=== PATIENT | female | born 1965 | race Caucasian/White ===

== ENCOUNTER 2018-03-08 23:17 | Inpatient (IN) | payer MEDICARE, OTHER ==
[~2018-03-08] VITALS: Ht 157.5 cm; Wt 90.7 kg
[2018-03-09 00:05] VITALS: BP 135/96
--- NOTE | 2018-03-09 00:05 | NUR ---
GPS ADMISSION NOTE, RECEIVED PATIENT FROM [facility] IN [facility]. PATIENT ARRIVED ON THIS UNIT AT 0005 VIA STRETCHER WITH 2 EMT ESCORTS. PATIENT ADMITTED VOLUNTARILY. PATIENT CAME FOR MEDICATION ADJUSTMENT AND HAS HAD DIFFICULTY SLEEPING. UPON FACE TO FACE ASSESSMENT PATIENT IS CURRENTLY LYING IN BED AWAKE, HAS NO S/S OR COMPLAINTS OF PAIN. PATIENT IS DISPLAYING NO S/S OF APPARENT DISTRESS. PATIENT BREATHING IS UNLABORED WITH EQUAL RISE AND FALL OF THE CHEST. PATIENT IS ALERT AND ORIENTATED X 3 ON ROOM AIR. PATIENT COMPLAINS OF INSOMNIA AT THIS TIME. PATIENT IS CALM AND COOPERATIVE, LAUGHING ABLE TO MAKE ALL NEEDS KNOWN. PATIENT IS UNDER THE PSYCHIATRIC CARE OF DR. BENITO AND THE MEDICAL CARE OF DR. LAKESHA QUINTANA. PATIENT BELONGINGS WERE INVENTORIED AND CHECKED FOR CONTRABAND. ALL CONTRABAND REMOVED AND STORED IN PATIENT HALLWAY LOCKER. PATIENT ADVANCED DIRECTIVES PREFERENCE, IMMUNIZATIONS QUESTIONER, NECESSARY PAPERWORK. SKIN ASSESSMENT WAS DONE. PATIENT ORIENTATED TO ROOM, FLOOR, AND STAFF WITH ALL QUESTIONS ANSWERED. PATIENT EDUCATED ON THE USE OF THE CALL OCHOA. PATIENT BED SIDE RAILS ARE UP X 2 FOR SAFETY. PATIENT BED IS LOCKED, LOW AND I WILL CONTINUE TO MONITOR THIS PATIENT Q 15 MIN WITH THE HELP OF STAFF TO MAINTAIN SAFETY.
[2018-03-09] MEDS ORDERED: MAGNESIUM HYDROXIDE 30 ML UDC PO PRN (00:30)
[2018-03-09] MEDS ORDERED: LORAZEPAM 0.5 MG TABLET PO PRN (00:30)
[2018-03-09] MEDS ORDERED: MAG HYDROX/AL HYDROX/SIMETH 30 ML UDC PO PRN (00:30)
[2018-03-09] MEDS ORDERED: ESCI10TA PO (01:19)
[2018-03-09] MEDS ORDERED: CLON1TAB5 PO (01:19)
[2018-03-09] MEDS ORDERED: HYDR-3026 PO (01:19)
[2018-03-09] MEDS ORDERED: OMEP20CA10 PO (01:19)
[2018-03-09] MEDS ORDERED: ARIP5TAB20 PO (01:19)
[2018-03-09] MEDS ORDERED: GABA-534 PO ×2 (01:19)
[2018-03-09] MEDS: ZOLPIDEM TARTRATE 5 MG TABLET PO PRN ×2 (01:32→22:10)
--- NOTE | 2018-03-09 01:32 | NUR ---
GPS RN NOTE, PATIENT HAS A COMPLAINT OF NOT BEING ABLE TO AND IS REQUESTING AMBIEN AT THIS TIME. PATIENT VITAL SIGNS ARE STABLE. GAVE AMBIEN 5MG PO HS ORDERED. WILL REASSESS FOR INSOMNIA AND I WILL CONTINUE TO MONITOR THIS PATIENT.
--- NOTE | 2018-03-09 05:30 | NUR ---
SPOKE ON PHONE WITH LAKESHA QUINTANA NP AT 0530 WHO SAID HE WILL RECONCILE MEDS.
--- NOTE | 2018-03-09 06:32 | NUR ---
GPS RN NOTE: WILL ENDORSE WITH NEXT SHIFT RN TO FOLLOW UP WITH ATIF BUENROSTRO ABOUT RECONCILIATION OF MEDS
[2018-03-09 08:00] VITALS: BP 158/99
[2018-03-09] MEDS: ESCITALOPRAM OXALATE (10 MG) 10 MG TABLET PO SCH (10:38)
[2018-03-09] MEDS: QUETIAPINE FUMARATE 25 MG TABLET PO SCH ×3 (10:38→22:10)
[2018-03-09] MEDS: clonazePAM 0.5 MG TABLET PO SCH ×4 (10:38→22:10)
--- NOTE | 2018-03-09 13:12 | NUR ---
DUE MED OF KLONOPIN NOT GIVEN AT THIS TIME BECAUSE THE FIRST DOSE OF THIS MED GIVEN AT 1038.
--- NOTE | 2018-03-09 15:05 | NUR ---
SW spoke to pt's mother, Sarah Vargas , regarding additional information and about a discharge plan.
--- NOTE | 2018-03-09 15:05 | NUR ---
Initial Discharge Plan: Pt came from [facility] [[address] [place] [address], ]. SW will work with the patient, the family and the MD regarding an appropriate discharge. SW will form a safe and proper discharge.
[2018-03-09 16:28] VITALS: BP 122/79
[2018-03-09 20:29] VITALS: BP 127/75
[2018-03-09] MEDS: GABAPENTIN 300 MG CAPSULE PO SCH (22:10)
[2018-03-10 07:15] LABS: BASOPHILS # (AUTO) 0.1 /CMM (0.0-0.2); BASOPHILS % (AUTO) 0.5 % (0.0-2.0); EOSINOPHILS % (AUTO) 4.3 % (0.0-6.0); HEMATOCRIT 37 % (33-45); HEMOGLOBIN 12.4 g/dL (11.5-14.8); LYMPHOCYTES # (AUTO) 2.5 /CMM (0.8-4.8); LYMPHOCYTES % (AUTO) 25.6 % (20.0-44.0); MEAN CORPUSCULAR HGB CONC 34 g/dl (31.0-36.0); MEAN CORPUSCULAR VOLUME 85 fL (82-100); MONOCYTES # (AUTO) 0.8 /CMM (0.1-1.30); MONOCYTES % (AUTO) 8.1 % (2.0-12.0); NEUTROPHILS # (AUTO) 5.9 /CMM (1.8-8.9); NEUTROPHILS % (AUTO) 61.5 % (43.0-81.0); PLATELET COUNT (AUTO) 312 /CMM (150-450); RDW COEFFICIENT OF VARIATION 14.6 (11.5-15.0); WHITE BLOOD COUNT (AUTO) 9.6 K/uL (4.3-11.0)
[2018-03-10 07:20] LABS: ALBUMIN 3.3 g/dL (3.4-5.0); BILIRUBIN,TOTAL 0.3 mg/dL (0.2-1.0); CALCIUM, SERUM 8.2 mg/dL (8.5-10.1); CREATININE 0.6 mg/dL (0.6-1.3); TOTAL PROTEIN, SERUM 7.9 g/dL (6.4-8.2)
[2018-03-10 07:26] LABS: CHOLESTEROL 118 mg/dL (<200); HDL CHOLESTEROL 37 mg/dL (40-60); LDL 84 mg/dL (0-99); TRIGLYCERIDES 37 mg/dL (30-150)
[2018-03-10 08:00] VITALS: BP 145/82
[2018-03-10] MEDS: clonazePAM 0.5 MG TABLET PO SCH ×4 (08:19→21:41)
[2018-03-10] MEDS: PANTOPRAZOLE 40 MG TABLET.DR PO SCH (08:20)
[2018-03-10] MEDS: QUETIAPINE FUMARATE 25 MG TABLET PO SCH ×3 (08:20→21:42)
[2018-03-10] MEDS: GABAPENTIN 300 MG CAPSULE PO SCH ×2 (08:20→21:42)
[2018-03-10] MEDS: ESCITALOPRAM OXALATE (10 MG) 10 MG TABLET PO SCH (08:20)
--- NOTE | 2018-03-10 15:16 | NUR ---
Kalani Sanchez BIT TAPPER notified that pt. has MRSA on the nares and ordered Bactroban ointment Q12 hours x7 days.
[2018-03-10 16:00] VITALS: BP 135/84
[2018-03-10 20:00] VITALS: BP 134/59
[2018-03-10] MEDS: GUAIFENESIN 300 MG/15 ML UDC PO PRN (20:12)
[2018-03-10] MEDS: MUPIROCIN OINT 2% 22 GM TUBE SCH (21:41)
[2018-03-10] MEDS: ZOLPIDEM TARTRATE 5 MG TABLET PO PRN (21:42)
[2018-03-11 08:06] VITALS: BP 129/80
[2018-03-11] MEDS: QUETIAPINE FUMARATE 25 MG TABLET PO SCH ×3 (08:24→20:49)
[2018-03-11] MEDS: ESCITALOPRAM OXALATE (10 MG) 10 MG TABLET PO SCH (08:24)
[2018-03-11] MEDS: GABAPENTIN 300 MG CAPSULE PO SCH ×2 (08:24→20:49)
[2018-03-11] MEDS: PANTOPRAZOLE 40 MG TABLET.DR PO SCH (08:24)
[2018-03-11] MEDS: clonazePAM 0.5 MG TABLET PO SCH ×4 (08:24→20:48)
[2018-03-11] MEDS: MUPIROCIN OINT 2% 22 GM TUBE SCH ×2 (08:27→20:46)
[2018-03-11 15:56] VITALS: BP 127/68
[2018-03-11] MEDS: GUAIFENESIN 300 MG/15 ML UDC PO PRN ×2 (16:24→23:01)
--- NOTE | 2018-03-11 16:24 | NUR ---
[id number]: GAVE ROBITUSSIN 15 ML DUE TO COMPLAINING OF COUGH AND WILL CONTINUE TO MONITOR FOR EFFECTIVENESS OF MEDICATION
[2018-03-11 20:04] VITALS: BP 120/75
[2018-03-11] MEDS: ZOLPIDEM TARTRATE 5 MG TABLET PO PRN (23:03)
[2018-03-12 07:59] VITALS: BP 134/70
[2018-03-12] MEDS: QUETIAPINE FUMARATE 25 MG TABLET PO SCH ×3 (08:52→21:37)
[2018-03-12] MEDS: clonazePAM 0.5 MG TABLET PO SCH ×4 (08:52→21:37)
[2018-03-12] MEDS: PANTOPRAZOLE 40 MG TABLET.DR PO SCH (08:52)
[2018-03-12] MEDS: GABAPENTIN 300 MG CAPSULE PO SCH ×2 (08:52→21:37)
[2018-03-12] MEDS: ESCITALOPRAM OXALATE (10 MG) 10 MG TABLET PO SCH (08:52)
[2018-03-12] MEDS: MUPIROCIN OINT 2% 22 GM TUBE SCH ×2 (08:54→21:38)
[2018-03-12 15:59] VITALS: BP 133/74
[2018-03-12] MEDS: GUAIFENESIN 300 MG/15 ML UDC PO PRN (17:50)
--- NOTE | 2018-03-12 19:30 | NUR ---
GPS RN NOTE, RECEIVED PATIENT AWAKE AND IN BED, NO S/S OR COMPLAINTS OF PAIN AT THIS TIME. PATIENT DISPLAYING NO S/S OF APPARENT DISTRESS AT THIS TIME. PATIENT BREATHING IS UNLABORED WITH EQUAL RISE AND FALL OF THE CHEST. PATIENT ALERT AND ORIENTED X 3 WITH A SPO2 95%. PATIENT IS ON ISOLATION PRECAUTIONS FOR MRSA. PATIENT IS MED COMPLIANT, DISORGANIZED, HYPERVERBAL, COOPERATIVE, LAUGHS AT SELF, NEEDS REORIENTATION. PATIENT DENIES SUICIDE IDEATIONS AND HOMICIDAL IDEATIONS AT THIS TIME. PATIENT ASSISTED WITH TURNING AND REPOSITIONING Q2HR AND PRN FOR COMFORT AND CIRCULATION. PATIENT HAS NO NEEDS AT THIS TIME. PATIENT EDUCATED ON THE USE OF THE CALL OCHOA. PATIENT BED SIDE RAILS UP X2 FOR SAFETY, BED IS LOCKED AND LOW WILL CONTINUE TO MONITOR AND MAINTAIN AND MAINTAIN SAFETY.
[2018-03-12 19:56] VITALS: BP 133/91
[2018-03-13] MEDS: GUAIFENESIN 300 MG/15 ML UDC PO PRN ×2 (04:27→21:47)
--- NOTE | 2018-03-13 04:27 | NUR ---
GPS RN NOTE, PATIENT HAS A COMPLAINT OF COUGH AND IS REQUESTING ROBITUSSIN AT THIS TIME. PATIENT VITAL SIGNS ARE STABLE. GAVE ROBITUSSIN 300MG PO Q6HR PRN ORDERED. WILL REASSESS COUGH AND I WILL CONTINUE TO MONITOR THIS PATIENT.
[2018-03-13 08:00] VITALS: BP 125/69
[2018-03-13] MEDS: clonazePAM 0.5 MG TABLET PO SCH ×4 (08:59→21:28)
[2018-03-13] MEDS: GABAPENTIN 300 MG CAPSULE PO SCH ×2 (08:59→21:28)
[2018-03-13] MEDS: ESCITALOPRAM OXALATE (10 MG) 10 MG TABLET PO SCH (08:59)
[2018-03-13] MEDS: QUETIAPINE FUMARATE 25 MG TABLET PO SCH ×4 (08:59→21:28)
[2018-03-13] MEDS: PANTOPRAZOLE 40 MG TABLET.DR PO SCH (08:59)
[2018-03-13] MEDS: MUPIROCIN OINT 2% 22 GM TUBE SCH ×2 (09:00→21:30)
[2018-03-13 16:00] VITALS: BP 150/83
[2018-03-13 17:33] LABS: APPEARANCE,URINE CLEAR (CLEAR); BILIRUBIN,URINE NEGATIVE (NEGATIVE); BLOOD, URINE NEGATIVE Ery/uL (NEGATIVE); COLOR,URINE YELLOW (YELLOW); KETONES,URINE NEGATIVE (NEGATIVE); LEUKOCYTE ESTERASE ,URINE NEGATIVE (NEGATIVE); NITRITE, URINE NEGATIVE (NEGATIVE); PH,URINE 5.5 (5.0-8.0); PROTEIN,URINE NEGATIVE (NEGATIVE); UGLUCOSE NEGATIVE (NEGATIVE); UROBILINOGEN,URINE 0.2 EU/dL (0.2)
[2018-03-13 20:18] VITALS: BP 128/72
[2018-03-14] MEDS: GUAIFENESIN 300 MG/15 ML UDC PO PRN ×2 (05:06→20:23)
[2018-03-14 08:00] VITALS: BP 140/78
[2018-03-14] MEDS: MUPIROCIN OINT 2% 22 GM TUBE SCH ×2 (09:00→20:34)
[2018-03-14] MEDS: clonazePAM 0.5 MG TABLET PO SCH ×2 (09:00→20:30)
[2018-03-14] MEDS: ESCITALOPRAM OXALATE (10 MG) 10 MG TABLET PO SCH (09:00)
[2018-03-14] MEDS: QUETIAPINE FUMARATE 25 MG TABLET PO SCH ×4 (09:00→21:05)
[2018-03-14] MEDS: PANTOPRAZOLE 40 MG TABLET.DR PO SCH (09:00)
[2018-03-14] MEDS: GABAPENTIN 300 MG CAPSULE PO SCH ×3 (09:12→21:04)
--- NOTE | 2018-03-14 13:58 | NUR ---
Pt spoke to Yisel Watts ([phone]) who is from the [facility] that the pt came from and updated her on the status.
[2018-03-14 15:58] VITALS: BP 127/80
--- NOTE | 2018-03-14 19:40 | NUR ---
RN NOTES GPS RN NOTE: RECEIVED PATIENT AWAKE IN DAY ROOM WATCHING TV. NO S/S OR COMPLAINTS OF PAIN AT THIS TIME. PATIENT DISPLAYING NO S/S OF APPARENT DISTRESS AT THIS TIME. PATIENT IS ALERT AND ORIENTED X 3. PATIENT DENIES SUICIDE IDEATIONS AND HOMICIDAL IDEATIONS AT THIS TIME. WILL CONTINUE TO MONITOR AND MAINTAIN AND MAINTAIN SAFETY.
[2018-03-14 20:30] VITALS: BP 137/81
[2018-03-15] MEDS: ZOLPIDEM TARTRATE 5 MG TABLET PO PRN (03:35)
--- NOTE | 2018-03-15 03:44 | NUR ---
GPS RN NOTE: PATIENT WOKE UP AT 0300 AND CAME TO NURSE STATION STATING COULD NOT GO BACK TO SLEEP. SHE INITIALLY REFUSED PRN FOR SLEEP BUT ACCEPTED PAPER AND PENCIL TO WRITE. ALSO VERBALIZED UPSET ABOUT A BASKETBALL GAME SHE WATCHED EARLIER TONIGHT. AT 0345, SHE WAS STILL AWAKE AND REQUESTED AND ACCEPTED PRN AMBIEN FOR SLEEP. NO OTHER SIGNS OF DISTRESS. WILL CONTINUE TO MONITOR.
[2018-03-15 08:00] VITALS: BP 129/70
[2018-03-15] MEDS: ESCITALOPRAM OXALATE (10 MG) 10 MG TABLET PO SCH (08:51)
[2018-03-15] MEDS: QUETIAPINE FUMARATE 25 MG TABLET PO SCH ×4 (08:51→21:41)
[2018-03-15] MEDS: GABAPENTIN 300 MG CAPSULE PO SCH ×3 (08:51→21:41)
[2018-03-15] MEDS: clonazePAM 0.5 MG TABLET PO SCH ×2 (08:52→21:41)
[2018-03-15] MEDS: PANTOPRAZOLE 40 MG TABLET.DR PO SCH (08:52)
[2018-03-15] MEDS: GUAIFENESIN 300 MG/15 ML UDC PO PRN ×2 (08:52→21:46)
[2018-03-15] MEDS: MUPIROCIN OINT 2% 22 GM TUBE SCH ×2 (08:52→21:40)
--- NOTE | 2018-03-15 14:53 | NUR ---
Pt spoke to Yisel Watts ([phone]) who is the ict development manager from the [facility] and house care that the pt came from and informed her of an updated discharge plan. SW also confirmed that a notice will be given a day before discharge.
[2018-03-15 16:00] VITALS: BP 130/77
--- NOTE | 2018-03-15 19:30 | NUR ---
GPS RN NOTE, RECEIVED PATIENT AWAKE AND IN BED, NO S/S OR COMPLAINTS OF PAIN AT THIS TIME. PATIENT DISPLAYING NO S/S OF APPARENT DISTRESS AT THIS TIME. PATIENT BREATHING IS UNLABORED WITH EQUAL RISE AND FALL OF THE CHEST. PATIENT ALERT AND ORIENTED X 3 WITH A SPO2 96%. PATIENT IS ON ISOLATION PRECAUTIONS FOR MRSA. PATIENT IS MED COMPLIANT, DISORGANIZED, HYPERVERBAL, COOPERATIVE, LAUGHS AT SELF, NEEDS REORIENTATION. PATIENT DENIES SUICIDE IDEATIONS AND HOMICIDAL IDEATIONS AT THIS TIME. PATIENT ASSISTED WITH TURNING AND REPOSITIONING Q2HR AND PRN FOR COMFORT AND CIRCULATION. PATIENT HAS NO NEEDS AT THIS TIME. PATIENT EDUCATED ON THE USE OF THE CALL OCHOA. PATIENT BED SIDE RAILS UP X2 FOR SAFETY, BED IS LOCKED AND LOW WILL CONTINUE TO MONITOR AND MAINTAIN AND MAINTAIN SAFETY.
[2018-03-15 20:35] VITALS: BP 143/83
[2018-03-16] MEDS: GUAIFENESIN 300 MG/15 ML UDC PO PRN ×2 (04:42→18:54)
[2018-03-16 08:00] VITALS: BP 133/81
[2018-03-16] MEDS: GABAPENTIN 300 MG CAPSULE PO SCH ×3 (08:49→21:16)
[2018-03-16] MEDS: QUETIAPINE FUMARATE 25 MG TABLET PO SCH ×3 (08:49→21:17)
[2018-03-16] MEDS: ESCITALOPRAM OXALATE (10 MG) 10 MG TABLET PO SCH (08:49)
[2018-03-16] MEDS: clonazePAM 0.5 MG TABLET PO SCH ×2 (08:50→21:16)
[2018-03-16] MEDS: PANTOPRAZOLE 40 MG TABLET.DR PO SCH (08:55)
[2018-03-16] MEDS: MUPIROCIN OINT 2% 22 GM TUBE SCH ×2 (08:55→21:07)
[2018-03-16 15:57] VITALS: BP 150/85
--- NOTE | 2018-03-16 16:33 | NUR ---
LISA spoke to pt's mother, Sarah Vargas and informed her that the pt will be discharging on Monday. LISA also retrieved the outside psychiatrist's information from her.
--- NOTE | 2018-03-16 20:00 | NUR ---
GPS RN NOTE, RECEIVED PATIENT AWAKE AND IN ROOM, NO S/S OR COMPLAINTS OF PAIN AT THIS TIME. PATIENT DISPLAYING NO S/S OF APPARENT DISTRESS AT THIS TIME. PATIENT BREATHING IS UNLABORED WITH EQUAL RISE AND FALL OF THE CHEST. PATIENT ALERT AND ORIENTED X 3 WITH A SPO2 100%. PATIENT IS ON ISOLATION PRECAUTIONS FOR MRSA NARES. PATIENT IS MED COMPLIANT, DISORGANIZED, HYPERVERBAL FREQUENTLY SEEKING ATTENTION, COOPERATIVE, BUT NEEDS REORIENTATION. PATIENT DENIES SUICIDE IDEATIONS AND HOMICIDAL IDEATIONS AT THIS TIME. PATIENT HAS NO NEEDS AT THIS TIME. PATIENT EDUCATED ON THE USE OF THE CALL OCHOA. PATIENT BED SIDE RAILS UP X2 FOR SAFETY, BED IS LOCKED AND LOW WILL CONTINUE TO MONITOR AND MAINTAIN AND MAINTAIN SAFETY.
[2018-03-16 20:06] VITALS: BP 137/75
[2018-03-17] MEDS: GUAIFENESIN 300 MG/15 ML UDC PO PRN (06:12)
[2018-03-17 08:00] VITALS: BP 135/78
[2018-03-17] MEDS: MUPIROCIN OINT 2% 22 GM TUBE SCH (08:33)
[2018-03-17] MEDS: PANTOPRAZOLE 40 MG TABLET.DR PO SCH (08:34)
[2018-03-17] MEDS: GABAPENTIN 300 MG CAPSULE PO SCH ×3 (08:34→21:32)
[2018-03-17] MEDS: clonazePAM 0.5 MG TABLET PO SCH ×2 (08:34→21:32)
[2018-03-17] MEDS: ESCITALOPRAM OXALATE (10 MG) 10 MG TABLET PO SCH (08:34)
[2018-03-17] MEDS: QUETIAPINE FUMARATE 25 MG TABLET PO SCH ×3 (08:35→21:32)
[2018-03-17 16:00] VITALS: BP 111/78
[2018-03-17] MEDS: ACETAMINOPHEN 325 MG TABLET PO PRN (18:30)
[2018-03-17 20:00] VITALS: BP 108/59
--- NOTE | 2018-03-18 01:06 | NUR ---
Pt has been quite argumentative, needy, loud, very easily agitated, anxious, & in continuous need of redirections.
[2018-03-18 08:00] VITALS: BP 128/88
[2018-03-18] MEDS: PANTOPRAZOLE 40 MG TABLET.DR PO SCH (08:54)
[2018-03-18] MEDS: ESCITALOPRAM OXALATE (10 MG) 10 MG TABLET PO SCH (08:54)
[2018-03-18] MEDS: clonazePAM 0.5 MG TABLET PO SCH ×2 (08:54→21:16)
[2018-03-18] MEDS: QUETIAPINE FUMARATE 25 MG TABLET PO SCH ×2 (08:54→17:08)
[2018-03-18] MEDS: GABAPENTIN 300 MG CAPSULE PO SCH ×4 (08:54→21:17)
[2018-03-18] MEDS: ACETAMINOPHEN 325 MG TABLET PO PRN (10:11)
[2018-03-18 16:14] VITALS: BP 136/74
[2018-03-18 20:03] VITALS: BP 119/68
[2018-03-18] MEDS: GUAIFENESIN 300 MG/15 ML UDC PO PRN (21:41)
--- NOTE | 2018-03-18 21:41 | NUR ---
RN NOTES PT HAS BEEN COUGHING, ROBITUSSIN 15 ML GIVEN PO. WILL CONTINUE TO MONITOR PT.
[2018-03-18] MEDS ORDERED: QUETIAPINE FUMARATE 25 MG TABLET PO SCH (22:00)
[2018-03-19 08:00] VITALS: BP 115/69
[2018-03-19] MEDS: GABAPENTIN 300 MG CAPSULE PO SCH ×2 (08:41→14:23)
[2018-03-19] MEDS: QUETIAPINE FUMARATE 25 MG TABLET PO SCH (08:42)
[2018-03-19] MEDS: PANTOPRAZOLE 40 MG TABLET.DR PO SCH (08:42)
[2018-03-19] MEDS: clonazePAM 0.5 MG TABLET PO SCH (08:42)
[2018-03-19] MEDS: ESCITALOPRAM OXALATE (10 MG) 10 MG TABLET PO SCH (08:42)
--- NOTE | 2018-03-19 10:00 | NUR ---
RN NOTES PATIENT REFUSED US OF DOPPLER BILATERAL VENOUS AT THIS TIME . PATIENT STATE " I WILL FOLLOW MY PRIMARY MD OUT PATIENT". DR RAMIREZ NOTIFIED. CONTINUED MONITORING.
--- NOTE | 2018-03-19 14:30 | NUR ---
DISCHARGE NOTES PATIENT DISCHARGE AT THIS TIME GOING BACK TO THE [facility]. PATIENT DENIED SI/HI/AVH AT THIS TIME OF DISCHARGE. PATIENT A/O X4, MED COMPLAINT, V/S STABLE, AMBULATORY SELF CARE. MED RECONCILIATION AND DISCHARGE ORDER REVIEWED AND EMPLANED TO PATIENT. PATIENT VERBALIZED UNDERSTANDING. PATIENT BELONGING RETURNED BACK TO THE PATIENT. PATIENT SIGN PAPERWORK. PATIENT ESCORTED TO THE [facility] FOR SAFETY. PATIENT RN INVASIVE BY [facility] [employer] NAME ЮЛИЯ PHONE # [phone]. Addendum: 03/19/18 at 1510 by NABIL CANSECO RN PATIENT WILL FOLLOW PRIMARY MD DR CAROLYN DURAND PHONE # [phone], AND PSYCHIATRIST DR CASANOVA PHONE # [phone].
--- NOTE | 2018-03-19 16:09 | NUR ---
Pt spoke to Yisel Watts ([phone]) and confirmed that the pt will be discharging today.
--- NOTE | 2018-03-19 16:10 | NUR ---
Discharge Note: Pt discharged and went back to her [facility] located at [facility] [place] [address] ([phone]). SW spoke to Yisel Watts ([phone]) who is the email marketing manager of the Board and [facility] to confirm this discharge plan. Pt was transported to the facility by [facility] at around 2pm because she is alert and oriented. Pt denied having any suicidal or homicidal ideations as well as visual or auditory hallucinations. Pts mood and affect were calm and cooperative at discharge. Pt was agreeable to this discharge due to the fact that she is returning to where she came from. Pt will be in the care of her psychiatrist Dr. Bronson and was given referrals for an outside medical doctor, Dr. Fransico Petersen ([address] [facility], [place] [address]).
== END 2018-03-19 14:30 | disposition home or self-care (01) | DRG 885 ==
LOC: GPS 03-09 00:01
PROVIDERS: ADMIT Psychiatry & Neurology Psychiatry; ATTEND Psychiatry & Neurology Psychiatry
DX: F31.10 Bipolar disorder, current episode manic without psychotic features, unspecified (principal); E44.1 Mild protein-calorie malnutrition; F29 Unspecified psychosis not due to a substance or known physiological condition; F41.9 Anxiety disorder, unspecified; E87.6 Hypokalemia; K21.9 Gastro-esophageal reflux disease without esophagitis; F84.0 Autistic disorder; F32.9 Major depressive disorder, single episode, unspecified; Z91.19 Patient's noncompliance with other medical treatment and regimen; Z79.899 Other long term (current) drug therapy; G47.00 Insomnia, unspecified; E66.01 Morbid (severe) obesity due to excess calories; Z68.36 Body mass index [BMI] 36.0-36.9, adult
CPT/HCPCS: 36415; 80053-TC; 80061-TC; 81000-TC; 85025-TC; 87081-TC; 87086-TC